=== PATIENT | female | born 1950 | race Caucasian/White ===

== ENCOUNTER 2021-12-19 12:19 | Observation (INO) ==
[2021-12-19 15:37] LABS: ABS Eosinophils 0.1 10^3/ul (0-0.6); ABS Lymphocytes 1.1 10^3/ul (1.0-4.8); ABS Monocytes 0.7 10^3/ul (0-0.8); ABS Neutrophils 5.1 10^3/ul (1.5-7.7); Eosinophil % 1.4 %; Hematocrit 38 % (35-47); Hemoglobin 12.4 g/dL (12.0-16.0); Lymphocyte % 15.6 %; Mean Corpuscular HGB Conc 33 g/dL (31-36); Mean Corpuscular Hemoglobin 30 pg (27-31); Mean Corpuscular Volume 92 fL (80-97); Mean Platelet Volume 8.7 fL (7.4-10.4); Platelet Count 279 10^3/uL (150-450); Red Blood Count 4.11 10^6 /uL (3.70-4.87); Red Cell Distribution Width 14 % (10-15)
[2021-12-19 15:47] LABS: Activated Partial Thrombo Time 27.7 seconds (26.0-38.0); INR 1.09 (0.86-1.15)
[2021-12-19 16:02] LABS: High Sens Troponin Baseline 7 pg/mL (<15)
[2021-12-19 16:35] LABS: ALT 44 U/L (7-52); Albumin 4.1 g/dL (3.2-5.2); Albumin/Globulin Ratio 1.3 (1-3); Alkaline Phosphatase 58 U/L (35-149); Blood Urea Nitrogen 19 mg/dL (6-24); CO2 Carbon Dioxide 30 mmol/L (22-32); Calcium 9.9 mg/dL (8.6-10.3); Chloride 99 mmol/L (101-111); Creatine Kinase 487 U/L (10-223); Globulin 3.1 g/dL (2-4); Glucose 120 mg/dL (70-100); Sodium 139 mmol/L (135-145); Total Protein 7.2 g/dL (6.4-8.9); eGFR CKD-EPI 83.2 (>60)
[2021-12-19 16:41] LABS: Anion Gap 10 mmol/L (2-11)
[2021-12-19] MEDS ORDERED: Lactated Ringers 1000 ml BAG 1,000 ML IV ONE (16:41)
[2021-12-19] MEDS ORDERED: ACETAMINOPHEN 1 GM/100 ML IV ONE (16:45)
[2021-12-19 16:58] LABS: High Sensitivity Troponin 1 Hr 8 pg/mL (<15)
[2021-12-19 19:33] LABS: Urine Appearance Cloudy; Urine Bilirubin Negative (Negative); Urine Blood Negative (Negative); Urine Color Yellow; Urine Glucose Negative (Negative); Urine Ketones Trace (Negative); Urine Nitrite Negative (Negative); Urine Protein Negative (Negative); Urine Specific Gravity 1.021 (1.002-1.030); Urine Urobilinogen Negative (Negative)
[2021-12-19 20:09] LABS: Urine Bacteria Absent (Absent); Urine Red Blood Cell 2+(6-10/hpf) (Absent); Urine Squamous Epithelial Cell Present (Absent); Urine White Blood Cell 1+(6-10/hpf) (Absent)
[2021-12-19 20:20] LABS: Potassium Redraw 4.2 mmol/L (3.5-5.0)
[2021-12-19] MEDS ORDERED: Al Hydrox/Mg Hydrox/Simet LIQ 30 ML UDC PO PRN (23:07)
[2021-12-20] MEDS: Enoxaparin 30 MG/0.3 ML SYR SUBCUT SCH ×2 (01:23→20:20)
[2021-12-21] MEDS: Magnesium Hydroxide LIQ 30 ML UDC PO PRN (07:43)
[2021-12-21] MEDS: Lidocaine PATCH 5% PATCH TRANSDERM SCH (09:34)
[2021-12-21] MEDS: Enoxaparin 30 MG/0.3 ML SYR SUBCUT SCH (21:56)
[2021-12-22] MEDS ORDERED: Senna TAB 8.6 mg TAB PO PRN (07:41)
[2021-12-22 08:31] LABS: Albumin 3.4 g/dL (3.2-5.2); Albumin/Globulin Ratio 1.5 (1-3); Calcium 8.5 mg/dL (8.6-10.3); Globulin 2.3 g/dL (2-4); Total Bilirubin 0.6 mg/dL (0.2-1.0); Total Protein 5.7 g/dL (6.4-8.9); eGFR CKD-EPI 59.9 (>60)
[2021-12-22] MEDS: Lidocaine PATCH 5% PATCH TRANSDERM SCH (08:36)
[2021-12-22] MEDS: Magnesium Hydroxide LIQ 30 ML UDC PO PRN (08:36)
[2021-12-22 08:57] LABS: Vitamin D Total 25(OH) 95.5 ng/mL (20-50)
[2021-12-22] MEDS ORDERED: Pneumococcal Vac 23-Polyvalent IM ONE (16:00)
[2021-12-22] MEDS: Enoxaparin 30 MG/0.3 ML SYR SUBCUT SCH (21:42)
[2021-12-23] MEDS: Lidocaine PATCH 5% PATCH TRANSDERM SCH (07:38)
[2021-12-23 11:32] VITALS: BP 113/70
[2021-12-23] MEDS ORDERED: Naloxone Nasal Spray 4 MG/0.1 ML NASAL.SPR INTRANASAL PRN (11:36)
[2021-12-23] MEDS: Magnesium Hydroxide LIQ 30 ML UDC PO PRN (11:58)
== END 2021-12-23 13:35 ==
LOC: EDHOLD 12:19 → ED 12:19 → SUATTDRO 23:07 → SSU 12-20 02:06
PROVIDERS: ADMIT Internal Medicine; ATTEND Internal Medicine